=== PATIENT | female | born 1965 | race Caucasian/White ===

== ENCOUNTER 2017-09-26 13:36 | Outpatient (CLI) | payer OTHER ==
--- NOTE | 2017-09-26 15:43 | ULT ---
THYROID SONOGRAM: History: Thyroid nodule. Comparison: 01-19-16 FINDINGS: The right thyroid lobe is 5.7 cm in length and contains oval hypoechoic nodules measuring up to 0.7 c m greatest diameter at the superior pole. The isthmus is 0.6 cm thickness. The left thyroid lobe is 4.6 in length. The dominant oval heterogeneous hypoechoic nodule medially is 1.1 x 0.9 x 0.8 cm greatest diameters on today's study, stable compared to the previous exam. IMPRESSION: Stable sonographic appearance of the small bilateral thyroid nodules. POS: [facility]
== END 2017-09-26 13:37 | disposition home or self-care (01) ==
LOC: ULT 13:36
PROVIDERS: ATTEND Otolaryngology Plastic Surgery within the Head & Neck
DX: E04.1 Nontoxic single thyroid nodule (principal); E04.2 Nontoxic multinodular goiter
CPT/HCPCS: 76536

== ENCOUNTER 2018-10-14 09:59 | Outpatient (CLI) | payer OTHER | END 2018-10-14 10:00 | disposition home or self-care (01) | LOC: BICMAMMO 09:59 | PROVIDERS: ATTEND Obstetrics & Gynecology | DX: Z12.31 Encounter for screening mammogram for malignant neoplasm of breast (principal); Z80.3 Family history of malignant neoplasm of breast | CPT/HCPCS: 77063; 77067 ==

== ENCOUNTER 2019-08-20 13:46 | Outpatient (CLI) | payer OTHER ==
--- NOTE | 2019-08-20 18:12 | MRI ---
Exam: Left ankle MRI without IV contrast: HISTORY: Chronic posterior tibial tendon pain FINDINGS: Multiplanar, multisequence MRI examination of the left ankle is performed. There is abnormal flatteni ng of the distal posterior tibial tendon with interstitial tearing over the course of approximately 2.5 cm with associated tenosynovitis. More cranially the tendon is slightly thickened evidence for te ndinopathy. The remainder of the flexor tendons, peroneus tendons, and extensor tendons appear intact. Achilles tendon and plantar fascia are unremarkable. No evidence for significant acute abnorm al marrow signal. No talar dome osteochondral lesion. Medial and lateral ankle collateral ligament complexes appear unremarkable. IMPRESSION: At least midgrade interstitial tearing of the distal posterior tibialis tendon with associated tenosy novitis.
== END 2019-08-20 13:47 | disposition home or self-care (01) ==
LOC: SCSMRI 13:46
PROVIDERS: ATTEND Podiatrist
DX: M76.822 Posterior tibial tendinitis, left leg (principal); S96.912A Strain of unspecified muscle and tendon at ankle and foot level, left foot, initial encounter; M65.872 Other synovitis and tenosynovitis, left ankle and foot

== ENCOUNTER 2019-09-03 11:46 | Day surgery (SDC) | payer OTHER ==
[2019-09-02 13:41] VITALS: BMI 27.8
[2019-09-03] MEDS ORDERED: PROPOFOL 200 MG/20 ML VIAL ONE (12:02)
--- NOTE | 2019-09-03 22:08 | OP ---
DATE OF PROCEDURE: 09/03/2019 PROCEDURE PERFORMED: Colonoscopy. PRE PROCEDURE DIAGNOSES: 1. High-risk colon cancer screening. 2. Family history of colon cancer in her father. POSTPROCEDURE DIAGNOSES: 1. Exam to cecum; good bowel preparation. 2. Normal colon. 3. Small internal hemorrhoids. 4. Otherwise normal colonoscopy, no polyps seen. PROCEDURE IN DETAIL: Written informed consent was obtained. The patient was brought to the endoscopy suite. Total intravenous anesthesia was administered by Mr. Cruz Razo CRNA. The patient was placed in the left lateral decubitus position. A digital rectal exam was performed that was unremarkable. A Pentax video colonoscope was inserted through the anal canal and advanced under direct visualization to the cecum. Position in the cecum was verified by identification of the appendiceal orifice and the ileocecal valve. The quality of the bowel preparation was good. Each colon segment was examined carefully as the colonoscope was slowly withdrawn from the cecum. Vascular pattern and haustral folds appeared normal. No polyp, diverticulum, or angioectasia was identified. In the rectum, a retroflexed view demonstrated small internal hemorrhoids that were not bleeding. The colon was decompressed as the colonoscope was removed from the patient. She was transferred to the day surgery area for postprocedure monitoring. There were no immediate complications. RECOMMENDATIONS: 1. Resume previous diet and medications. 2. High-fiber, low-fat diet. 3. Repeat colonoscopy in 5 years. 4. Follow up with Gastroenterology as needed. Job ID: [id number]
== END 2019-09-03 15:25 | disposition home or self-care (01) ==
LOC: SDC 11:46
PROVIDERS: ATTEND Internal Medicine Gastroenterology
PROC: 0DJD8ZZ Inspection of Lower Intestinal Tract, Via Natural or Artificial Opening Endoscopic (ICD-10-PCS; principal; 2019-09-03)
DX: Z12.11 Encounter for screening for malignant neoplasm of colon (principal); K64.8 Other hemorrhoids; F41.9 Anxiety disorder, unspecified; Z80.0 Family history of malignant neoplasm of digestive organs; Z83.71 Family history of colonic polyps; Z79.899 Other long term (current) drug therapy
CPT/HCPCS: J2704